=== PATIENT | male | born 1990 | race Caucasian/White ===

== ENCOUNTER 2017-02-11 10:43 | Emergency (ER) | payer OTHER ==
[~2017-02-11] VITALS: Ht 177.8 cm; Wt 132.9 kg
[2017-02-11 13:32] VITALS: BP 148/84
== END 2017-02-11 13:32 | disposition home or self-care (01) ==
LOC: ED 10:43
DX: J06.9 Acute upper respiratory infection, unspecified (principal); J45.909 Unspecified asthma, uncomplicated
CPT/HCPCS: J7613; Q0092

== ENCOUNTER 2018-10-02 20:51 | Emergency (ER) | payer OTHER ==
[~2018-10-02] VITALS: Ht 177.8 cm; Wt 137.9 kg
[2018-10-02 21:22] VITALS: Ht 177.8 cm; Wt 137.9 kg
[2018-10-02 22:53] VITALS: BP 132/75
== END 2018-10-02 22:53 | disposition home or self-care (01) ==
LOC: ED 20:51
DX: J20.9 Acute bronchitis, unspecified (principal); J45.909 Unspecified asthma, uncomplicated; Z91.013 Allergy to seafood

== ENCOUNTER 2019-04-01 22:03 | Emergency (ER) | payer OTHER ==
[~2019-04-01] VITALS: Ht 177.8 cm; Wt 137.0 kg
[2019-04-01 22:09] VITALS: BP 150/94; Ht 177.8 cm; Wt 137.0 kg
== END 2019-04-01 23:28 | disposition home or self-care (01) ==
LOC: ED 22:03
DX: H61.22 Impacted cerumen, left ear (principal); H60.92 Unspecified otitis externa, left ear